=== PATIENT | female | born 1995 | race African-American/Black ===

== ENCOUNTER 2018-07-15 15:57 | Inpatient (IN) ==
[2018-07-15 16:52] LABS: Basophils # 0.1 10*3/uL (0.0-0.2); Basophils % 0.7 % (0.0-0.8); Eosinophils # 0.1 10*3/uL (0.0-0.87); Eosinophils % 1.8 % (0.00-10.9); Hematocrit 34.6 VOL% (35.7-47.0); Hemoglobin 11.1 GM/DL (12.0-16.0); Immature Granulocytes % 0.5 %; Immature Granulocytes Absolute 0.04 #; Lymphocytes # 1.8 10*3/uL (1.4-4.0); Lymphocytes % 23.8 % (21.3-54.2); Mean Corpuscular HGB Conc 32.1 GM/DL (32-36); Mean Corpuscular Hemoglobin 26 PG (27-34); Mean Corpuscular Volume 82.2 FL (87-102); Mean Platelet Volume 10.3 FL (9.6-12.0); Monocytes # 0.9 10*3/uL (0.11-0.8); Monocytes % 12.7 % (1.7-12.7); Neutrophils # 4.5 10*3/uL (1.4-7.4); Neutrophils % 60.5 % (38.7-73.9); Platelet Count 259 T/CUMM (130-400); Red Blood Count 4.21 MC/CUMM (3.8-5.5); White Blood Count 7.4 T/CUMM (4-12)
[2018-07-15 17:03] LABS: INR 0.9; PT Patient Result 9.8 SECS; Partial Thromboplastin Time 25.6 SECS (0-40)
[2018-07-15 17:17] LABS: Alanine Aminotransferase 14 U/L (13-56); Albumin 2.4 G/DL (3.4-5.0); Alkaline Phosphatase 140 U/L (45-117); Aspartate Amino Transferase 10 U/L (0-37); Bilirubin,Total < 0.39 MG/DL (0.2-1.0); Blood Urea Nitrogen 6 MG/DL (7-18); Glucose 89 MG/DL (74-106); Osmolality,Calculated 271.7 MOS/KG (273-304); Potassium 3.7 MMOL/L (3.5-5.1); Sodium 138 MMOL/L (136-145); Total Protein 6.7 G/DL (6.4-8.3); Uric Acid 7.5 MG/DL (2.6-6.0)
[2018-07-15 17:42] LABS: Apearance,Urine CLOUDY (Clear); Bacteria,Urine Occasional /HPF (Few); Bilirubin,Urine Negative (Negative); Blood, Urine Negative (Negative); Glucose,Urine (UA) Negative (Negative); Ketones,Urine Negative (Negative); Mucus,Urine Occasional /LPF (Occasional); Nitrite,Urine Negative (Negative); Protein,Urine Negative; RBC,Urine 17 /HPF (0-4); Squamous Epithelial Cell,Urine Few /HPF (0-10); Urine Color Yellow (Yellow); Urine Specific Gravity 1.021 (1.001-1.035); WBC,Urine 11 /HPF (0-6)
[2018-07-15 19:09] LABS: Barbiturates Screen,Urine Negative (Negative); Benzodiazepines Screen,Urine Negative (Negative); Cannabinoid Screen,Urine Negative (Negative); Opiate Screen,Urine Negative (Negative); Phencyclidine Screen,Urine Negative (Negative)
[2018-07-15] MEDS: LABETALOL 200 MG TABLET PO SCH (23:36)
[2018-07-16 06:12] LABS: Creatinine 12 Hr Ur Result 0.82 G/12HR (0.30-0.90)
[2018-07-16 06:17] LABS: Total Protein 12 Hr Ur Result 81 MG/12HR (0-75)
[2018-07-16] MEDS ORDERED: ONDANSETRON 4 MG/2 ML VIAL IV PRN (10:51)
[2018-07-16] MEDS ORDERED: MEPERIDINE 50 MG/1 ML VIAL IV PRN (10:51)
[2018-07-16] MEDS ORDERED: BUTORPHANOL 2 MG/ML VIAL IV PRN (10:51)
[2018-07-16] MEDS: LABETALOL 200 MG TABLET PO SCH ×2 (10:59→23:06)
[2018-07-16] MEDS ORDERED: OXYTOCIN/LR 20 UNIT/1,000 ML BAG IV SCH (11:00)
[2018-07-16] MEDS: LACTATED RINGERS 1,000 ML IV SCH ×3 (11:00→23:04)
[2018-07-16 11:17] LABS: Basophils # 0.1 10*3/uL (0.0-0.2); Basophils % 0.6 % (0.0-0.8); Eosinophils # 0.1 10*3/uL (0.0-0.87); Eosinophils % 1.2 % (0.00-10.9); Hematocrit 32.8 VOL% (35.7-47.0); Hemoglobin 10.5 GM/DL (12.0-16.0); Immature Granulocytes % 0.8 %; Immature Granulocytes Absolute 0.06 #; Lymphocytes # 1.7 10*3/uL (1.4-4.0); Lymphocytes % 22.3 % (21.3-54.2); Mean Corpuscular Hemoglobin 26 PG (27-34); Mean Corpuscular Volume 82.2 FL (87-102); Mean Platelet Volume 10.4 FL (9.6-12.0); Monocytes # 0.6 10*3/uL (0.11-0.8); Monocytes % 7.6 % (1.7-12.7); Neutrophils # 5.2 10*3/uL (1.4-7.4); Neutrophils % 67.5 % (38.7-73.9); Platelet Count 250 T/CUMM (130-400); Red Blood Count 3.99 MC/CUMM (3.8-5.5); Red Cell Distribution Width 14.2 % (9.3-17.3); White Blood Count 7.8 T/CUMM (4-12)
[2018-07-16 11:34] LABS: Alanine Aminotransferase 14 U/L (13-56); Albumin 2.4 G/DL (3.4-5.0); Alkaline Phosphatase 139 U/L (45-117); Aspartate Amino Transferase 7 U/L (0-37); Bilirubin,Total < 0.39 MG/DL (0.2-1.0); Blood Urea Nitrogen 8 MG/DL (7-18); Calcium 8.8 MG/DL (8.5-10.1); Glucose 127 MG/DL (74-106); Osmolality,Calculated 274.7 MOS/KG (273-304); Potassium 3.6 MMOL/L (3.5-5.1); Sodium 138 MMOL/L (136-145); Total Protein 6.8 G/DL (6.4-8.3); Uric Acid 7.6 MG/DL (2.6-6.0)
[2018-07-16] MEDS ORDERED: ePHEDrine 50 MG/ML AMP IV PRN (19:31)
[2018-07-16] MEDS ORDERED: hydrOXYzine HCL 25 MG/1 ML VIAL IM PRN (19:31)
[2018-07-16] MEDS ORDERED: NALOXONE 0.4 MG/ML VIAL IV PRN (19:31)
[2018-07-16] MEDS ORDERED: diphenhydrAMINE 50 MG/1 ML VIAL IV PRN (19:31)
[2018-07-16] MEDS ORDERED: FAMOTIDINE 20 MG/2 ML VIAL IV ONE (19:33)
[2018-07-16] MEDS ORDERED: CITRIC ACID/SODIUM CITRATE 30 ML UDCUP PO ONE (19:34)
[2018-07-16] MEDS ORDERED: fentaNYL 2 MCG/ROPIV 0.2% EPID 100 ML EPIDURAL SCH (20:00)
[2018-07-17] MEDS ORDERED: METHYLERGONOVINE 0.2 MG/1 ML AMP ONE (03:37)
[2018-07-17] MEDS ORDERED: LIDOCAINE 1% 50 ML VIAL ONE (03:37)
[2018-07-17] MEDS ORDERED: CARBOPROST TROMETHAMINE 250 MCG/ML AMP IM ONE (03:37)
[2018-07-17] MEDS ORDERED: miSOPROStol 200 MCG TABLET ONE (03:37)
[2018-07-17] MEDS ORDERED: DIPH/TET/ACEL PERT BOOSTER VACCINE 0.5 ML VIAL IM ONE (06:28)
[2018-07-17] MEDS ORDERED: ACETAMINOPHEN 325 MG TABLET PO PRN (06:28)
[2018-07-17] MEDS ORDERED: LANOLIN 50% CREAM 0.3 OZ TUBE TOP PRN (06:28)
[2018-07-17] MEDS ORDERED: BENZOCAINE 20%/MENTHOL 0.5% SPRAY 56 GM CAN TOP PRN (06:28)
[2018-07-17] MEDS ORDERED: RHO(D) IMMUNE GLOBULIN 300 MCG SYRINGE IM ONE (06:28)
[2018-07-17] MEDS ORDERED: BISACODYL 10 MG SUPP RECTAL PRN (06:28)
[2018-07-17] MEDS ORDERED: OXYTOCIN/LR 20 UNIT/1,000 ML BAG IV ONE (06:28)
[2018-07-17] MEDS ORDERED: MEASLES/MUMPS/RUBELLA VACCINE 0.5 ML VIAL SUBCUT ONE (06:28)
[2018-07-17] MEDS ORDERED: WITCH HAZEL PADS 100/JAR TOP PRN (06:28)
[2018-07-17] MEDS ORDERED: oxyCODONE/ACETAMINOPHEN 5-325 MG TABLET PO PRN (06:28)
[2018-07-17] MEDS ORDERED: HYDROCORTISONE 2.5% RECTAL CREAM 30 GM TUBE TOP PRN (06:28)
[2018-07-17] MEDS: LABETALOL 200 MG TABLET PO SCH ×3 (08:53→21:18)
[2018-07-17] MEDS: DOCUSATE SODIUM 100 MG CAPSULE PO SCH (21:18)
[2018-07-18 05:11] LABS: Basophils # 0.1 10*3/uL (0.0-0.2); Basophils % 0.5 % (0.0-0.8); Eosinophils # 0.3 10*3/uL (0.0-0.87); Eosinophils % 1.9 % (0.00-10.9); Hematocrit 26.7 VOL% (35.7-47.0); Immature Granulocytes % 0.9 %; Immature Granulocytes Absolute 0.12 #; Lymphocytes # 2.6 10*3/uL (1.4-4.0); Lymphocytes % 19.5 % (21.3-54.2); Mean Corpuscular HGB Conc 31.5 GM/DL (32-36); Mean Corpuscular Hemoglobin 26 PG (27-34); Mean Corpuscular Volume 83.7 FL (87-102); Monocytes # 1.6 10*3/uL (0.11-0.8); Monocytes % 12.2 % (1.7-12.7); Neutrophils # 8.7 10*3/uL (1.4-7.4); Platelet Count 219 T/CUMM (130-400); Red Cell Distribution Width 14.1 % (9.3-17.3)
[2018-07-18 05:23] LABS: Hemoglobin 8.4 GM/DL (12.0-16.0); Red Blood Count 3.19 MC/CUMM (3.8-5.5); White Blood Count 13.3 T/CUMM (4-12)
[2018-07-18] MEDS: oxyCODONE/ACETAMINOPHEN 5-325 MG TABLET PO PRN ×2 (07:41→21:00)
[2018-07-18] MEDS: IBUPROFEN 800 MG TABLET PO PRN ×2 (07:41→21:00)
[2018-07-18] MEDS: DOCUSATE SODIUM 100 MG CAPSULE PO SCH ×2 (07:42→20:53)
[2018-07-18] MEDS: LABETALOL 200 MG TABLET PO SCH ×2 (07:42→20:53)
[2018-07-18] MEDS: FERROUS SULFATE 325 MG TABLET PO SCH (20:53)
[2018-07-19 07:20] VITALS: BP 132/82
[2018-07-19] MEDS: DOCUSATE SODIUM 100 MG CAPSULE PO SCH (08:31)
[2018-07-19] MEDS: LABETALOL 200 MG TABLET PO SCH (08:31)
[2018-07-19] MEDS: FERROUS SULFATE 325 MG TABLET PO SCH (08:32)
== END 2018-07-19 12:45 | disposition home or self-care (01) | DRG 560 ==
LOC: N.LDOUT 15:57 → N.LD 16:02 → N.OB 07-17 10:30
PROVIDERS: ADMIT Obstetrics & Gynecology; ATTEND Obstetrics & Gynecology